=== PATIENT | female | born 1960 | race Caucasian/White ===

== ENCOUNTER 2016-09-26 09:06 | Day surgery (SDC) | payer OTHER ==
[2016-09-26] VITALS (8 sets, daily range): BP systolic 115–125; BP diastolic 70–80; PULSE 83–97; RESP 16–23; O2SAT 96–100
[~2016-09-26] VITALS: Ht 149.9 cm; Wt 48.6 kg
[~2016-09-26 09:06] MED LIST: Dexamethasone 4 mg/mL Inj IVPUSH PRN; EPHEDrine Sulfate 50 mg/mL Inj IVPUSH PRN; HYDROmorphone 1 mg/mL Inj IVPUSH PRN; Labetalol 5 mg/mL 4 mL Inj IV PRN; Lactated Ringer's 1,000 ML IV SCH; Lactated Ringer's 500 ML IV PRN; MetoCLOpramide 5 mg/mL 2 mL Inj IVPUSH PRN; Ondansetron 2 mg/mL 2 mL Inj IVPUSH PRN; Phenylephrine 10,000 mCg/mL Inj IVPUSH PRN; VENL37.587 PO; fentaNYL-PF 50 mCg/mL 2 mL Inj IVPUSH PRN; hydrALAZINE 20 mg/mL Inj IVPUSH PRN
[2016-09-26] MEDS ORDERED: fentaNYL-PF 50 mCg/mL 2 mL Inj ONE (09:07)
[2016-09-26] MEDS ORDERED: Ondansetron 2 mg/mL 2 mL Inj ONE (09:07)
[2016-09-26] MEDS ORDERED: Ketamine 10 mg/mL 20 mL Inj ONE (09:07)
[2016-09-26] MEDS ORDERED: Lidocaine PF 1% 30 mL Inj ONE (09:07)
[2016-09-26] MEDS ORDERED: Propofol 10,000 mCg/mL 20 mL Inj ONE (09:07)
[2016-09-26] MEDS ORDERED: Dexamethasone 4 mg/mL Inj ONE (09:07)
[2016-09-26] MEDS: Lactated Ringer's 1,000 ML IV SCH ×2 (09:45→12:31)
[2016-09-26] MEDS ORDERED: Bupivacaine-MPF 0.25% 30 mL Inj INFILTRATE ONE (12:31)
[2016-09-26] MEDS ORDERED: oxyCODONE-Acetamin 5-325 mg Tablet PO PRN (13:35)
--- NOTE | 2016-09-26 13:54 | PCM.HPANE ---
Patient Data Date of Service: Sep 26, 2016 Surgeon Admitting Provider: Attending Provider:Timoteo Smith MD Primary Care Physician:Liss Carballo MD Other Provider:Foster Babb Anesthesia Reason for Visit Left Breast Cancer Ht/WT & BMI Height (Feet): 4 Height (Inches): 11 Weight (Kilograms): 48.6 Body Mass Index 21.00 Allergies Uncoded Allergies: PENICILLIN (Allergy, Unknown, HIVES, 07/16/16) Past Anesthesia History Anesthesia History: Denies:: Anesthesia Reactions Diabetes History Hx Diabetes?: No Medications Home Meds Incl Beta Hetal: No Reported Medications Venlafaxine ER 37.5 Mg Tab.[id number] Mg PO BID Ref 0 09/25/16 Discontinued Reported Medications [Effexor] No Conflict Check Po Daily UNSURE OF DOSE 07/16/16 History History of ENT Problems?: No HEENT History: Denies:: Abnormal Airway Cataracts Difficult Intubation Dysphagia Glaucoma Hearing Problem Sinus Problem TMJ Denture Type: None Teeth Condition: Within Normal Limits Hx of Heart Problems?: No Cardiovascular History: Denies:: AICD Abdominal Aortic Aneurism Atrial Fibrillation Cardiac Surgery Chest Pain Congestive Heart Failure Coronary Artery Disease Edema Heart Murmur Hypertension Irregular Heartbeat Pacemaker Peripheral Vascular Rheumatic Fever Thrombophlebitis Valvular Heart Disease Hx of Respiratory Problem?: Yes Respiratory History: Positive for:: Chest Surgery (video assisted Rt Upper lobectomy in [place] 08/23/2015) Denies:: Oxygen Administration Use of C-PAP Machine Use of Inhalers / NEBS Other Resp Pertinent History: right upper lobe lung cancer Hx Neurologic Problems?: No Hx of GI Problems?: No Hx of Problems?: No Female Hx: Positive for:: Problems with Breasts? (left breast current admission problem) Hx Musculoskeletal Problems?: No Hx of Psycho/Social Problems?: Yes Psycho Social History: Positive for:: Anxiety Hx Surgeries?: Yes (breast lumpectomy, video assist Rt upper lobectomy) Hx Any Other Health Problems?: Yes Other History: Positive for:: Cancer (right upper lobe lung, left breast) Denies:: Thyroid Disease Hx Diabetes: No Have You Smoked inLast 12 mo: YesApprox How Many Cigarettes/day: 5 cig daily Stop/Bang S-Snoring: Do You Snore Loudly: No T-Tired: feel tired, fatigued: Yes O-Obsered: Observed not breath: No P-Blood Pressure: treated: No B- Body Mass Index > 35 kg/m2: No A- Age over 50: Yes N- Neck Large Circumference: No G- Gender Male: No PRAVIN Total Score: 2 PRAVIN Risk Assessment: Low Risk, <3 Yes Risk Assessment Category Category 1A: Patient has history of documented sleep apnea, and HAS NOT received any narcotic, sedative or anesthesia administration during this stay. Category 1B: Patient has history of documented sleep apnea, and HAS received any narcotic , sedative or anesthesia administration during this stay Category 2: Patient has SUSPECTED Obstructive Sleep Apnea, and HAS received any narcotic , sedative or anesthesia administration during this stay. Category 3: Patient has SUSPECTED Obstructive Sleep Apnea and HAS NOT received narcotic, sedative or anesthesia administration during this stay. Category 4: Outpatient in Procedural Areas with known sleep apnea or who screen positive for High Risk via the STOP/BANG questionnaire. Exam Exam Vital Signs Vital Signs Date Time Temp Pulse Resp B/P Pulse Ox O2 Delivery O2 Flow Rate FiO2 09/26/16 13:45 90 19 123/80 97 Room Air 09/26/16 13:40 97 18 125/80 97 Room Air 09/26/16 13:37 37.2 97 18 115/78 97 Room Air 09/26/16 09:46 36.2 88 16 120/70 100 Room Air General Appearance: Alert, Oriented X3, Cooperative, No Acute Distress HEENT/AIRWAY: MP 2 Lungs: Clear to Auscultation, Normal Air Movement Heart: Exam Unremarkable, Regular Rate/Rhythm, No Murmurs/Rubs/Gallops Meds/Labs/Diagnostics Admission Meds Current Medications Lactated Ringer's (Lr) 1,000 ml @ 120 mls/hr Q8H20M IV Last administered on 12:31; Start 09/26/16 at 05:00; Stop 09/26/16 at 13:28; Status DC Bupivacaine HCl (Sensorcaine-MPF 0.25% Inj) 30 ml STK-MED ONCE INFILTRATE Last administered on 09/26/16 12:31; Start 09/26/16 at 12:31; Stop 09/26/16 at 13:08 ; Status DC Plan Impression Patient chart reviewed, patient interviewed and anesthestic plan with risks, benefits, and alternatives discussed, and informed consent obtained. NPO per Anesth. Guidelines: Yes ASA Physical Status: ASA2 Mod Systemic Disease Anesthetic Plan: GA Bene/Risks/Altern/Consents: Yes HP Complete Prior to Induction: Yes Cuauhtemoc Ayala MD Sep 26, 2016 13:54
--- NOTE | 2016-09-26 13:54 | PCM.ANEP1 ---
Post Anesthesia PACU Phase 1 Assessment Vital Signs Vital Signs Date Time Temp Pulse Resp B/P Pulse Ox O2 Delivery O2 Flow Rate FiO2 09/26/16 13:45 90 19 123/80 97 Room Air 09/26/16 13:40 97 18 125/80 97 Room Air 09/26/16 13:37 37.2 97 18 115/78 97 Room Air 09/26/16 09:46 36.2 88 16 120/70 100 Room Air Anesthetic Administered: GA Level of Alertness: Awake, talking FIGUEROA's with Equal Strength: No Pain: No Nausea or Vomiting: No CV Function & Hydration Stable: Yes Airway Device: Lungs: Clear to Auscultation, Normal Air Movement PACU Phase 2 Assessment Complications: No Follow up Care: N/A Patient Instructions Provided: N/A Cuauhtemoc Ayala MD Sep 26, 2016 13:54
--- NOTE | 2016-09-26 14:02 | OP ---
[address] [address] OPERATIVE REPORT PATIENT: PANCHO GOMEZ : 1960 MR#: [id number] ADMIT: 09/26/2016 JOB ID: [id number] DATE OF SURGERY: 09/26/2016 ANESTHESIA: General. PREOPERATIVE DIAGNOSIS(ES): Left breast cancer. POSTOPERATIVE DIAGNOSIS(ES): Left breast cancer. OPERATION: Left partial mastectomy with sentinel lymph node biopsy. SURGEON: Dr. Timoteo Smith FISHING TOOL SUPERVISOR: Justin Pate PA-C COMPLICATIONS: None. ESTIMATED BLOOD LOSS: Less 5 mL. CONDITION: Satisfactory. SPECIMEN: 1. Left sentinel lymph node. 2. Left breast partial mastectomy. Suture wood medial. FINDINGS: There was a weak signal in the axilla. Isolated node that had slight signal and removed it. It actually turned out to be more likely a conglomeration of nodes. There was no remaining signal in the axilla and no other palpable nodes. A left partial mastectomy was completed with an ellipse of skin. The cancer palpated quite superficial. Clips were left to ely the surgical bed. Specimen radiograph confirms removal of this specimen with sonographically placed clips. INDICATION/SIGNIFICANT HISTORY: The patient is a 55-year-old woman who was recently diagnosed with a right upper lobe cancer as well as a left breast cancer. She recently underwent VATS resection of her lung cancer and was then having her breast cancer surgery today. Preoperatively she had undergone both a mammogram for left breast nodule noted on physical examination, followed by ultrasound with biopsy confirming intermediate to high-grade ductal carcinoma. A clip was placed at that time and the specimen radiograph obtained. Prior to the biopsy, she had an MRI which demonstrated a 1.3 x 0.9 x 1.6 cm mass with a subcentimeter satellite lesion medial to the mass. She also underwent FNA of a left axillary lymph node with findings benign. PET scan showed no evidence of cassia disease. OPERATIVE TECHNIQUE: The patient received a nuclear medicine injection in the preoperative holding area. She was then brought back into the operating room and placed in the supine position. General anesthesia was administered. The left axilla and breast were prepped and draped in a standard surgical fashion. A procedural pause performed. I then used a gamma probe to determine if there is any signal in the axilla. There is very low signal. A transverse incision was made at the hairline and dissection carried down through skin and subcutaneous tissue. The fascia was opened to enter the deep axillary space. Using a gamma probe, I identified area of signal. There was a palpable node that corresponded with this. Therefore, dissect this out. It actually looks more like a conglomeration of a couple nodes. There was no remained signal in the axilla and no more palpable nodes. Attention was then turned to the left breast. There was an easily palpable lesion in the area of the breast cancer. Because it seemed quite superficial, I made an elliptical incision encompassing the skin over this. I then performed a generous lumpectomy being sure to take a lot of tissue medially to try and encompass this satellite lesion. The excision went down to the pectoralis fascia. After completely removing the specimen, it was oriented and stitched. A specimen radiograph confirmed that the sonographically placed clip was present. I then placed clips in surgical bed for postoperative radiation therapy localization. The breast tissue was then reapproximated using 3-0 Vicryl followed by running 4-0 Monocryl for the skin. 3-0 Vicryl was used to reapproximate the fascia and the axilla again followed by a running 4-0 Monocryl. Dermabond was applied to both incisions. Local anesthetic was injected. The entire procedure was well tolerated without complication.
--- NOTE | 2016-09-27 11:44 | DRSVH ---
PROCEDURE: NM SENTINEL NODE INJECTION ONLY, LEFT BREAST RADIOPHARMACEUTICAL: 0.598 mCi Millipore filtered Tc-99m sulfur colloid. INDICATIONS: pre-op in DS PROCEDURE: The indications, alternatives, benefits, risks, and complications of the procedure were explained to the patient. Written informed consent was obtained and placed in the chart. The area around the nip ple was prepped and draped in a sterile fashion. Tc-99m sulfur colloid was injected in the outer edg e of the areola in the left breast. No image was obtained. IMPRESSION: Administration of radiotracer into the left breast periareolar region for intra-operativ e sentinel lymph node localization. Dictated by: Harpreet Souza M.D. on 09/27/2016 at 11:41 Approved by: Harpreet Souza M.D. on 09/27/2016 at 11:43
--- NOTE | 2016-09-30 08:33 | DRSVH ---
SPECIMEN: 09/26/2016 CLINICAL: Breast specimen. Correlation is made to exams dated: 09/27/2015 mammogram, 06/15/2013 mammogram, and 07/16/2010 mammogram - Breast [facility]. Left breast specimen radiograph containing a ribbon shaped clip. IMPRESSION: SPECIMEN Left breast specimen radiograph containing a ribbon shaped clip. Prasad Evans M.D. cj/:09/27/2016 17:27:02 Additional referring physicians: MARICARMEN JOAQUIN LUCIA C. MULLU
--- NOTE | 2016-10-01 13:23 | PATH ---
SURGICAL PATHOLOGY Attending Physician:Timoteo Smith MD CASE STATUS: Signed Out PATIENT NAME: BERNICE GOMEZ PID: [id number] : 1960 DATE COLLECTED:09/26/2016 00:00 SPECIMEN: 1: [place] Lymph Node 2: Breast, Simple Mastectomy (lymph nodes submitted separately) CLINICAL HISTORY: LEFT BREAST CANCER 1). SENTINEL LYMPH NODE LEFT AXILLA OUT 13:06 FORMALIN 13:18 2). LEFT BREAST PARTIAL MASTECTOMY OUT 13:14 FORMALIN 13:24, SUTURE FERRARA MEDIAL FINAL DIAGNOSIS: 1.LEFT AXILLARY SENTINEL LYMPH NODE BIOPSY: SINGLE LYMPH NODE NEGATIVE FOR MALIGNANCY (SEE CAP CANCER SUMMARY BELOW). 2.LEFT BREAST EXCISIONAL SPECIMEN: INVASIVE BREAST CARCINOMA (SEE CAP CANCER SUMMARY BELOW). CAP CANCER CASE SUMMARY INVASIVE CARCINOMA OF THE BREAST: PROCEDURE: EXCISIONAL SPECIMEN WITHOUT WIRE LOCALIZATION LYMPH NODE SAMPLING: SINGLE SENTINEL LYMPH NODE (PART 1) NEGATIVE FOR MALIGNANCY TUMOR SIZE: 2.2 X 1.6 X 1.3 CM HISTOLOGIC TYPE: INFILTRATING DUCTAL CARCINOMA HISTOLOGIC GRADE: SADIQ HISTOLOGIC SCORE 9 OF 9 Glandular/Tubular differentiation: Score 3 of 3 Nuclear Pleomorphism: Score 3 of 3 Mitotic Rate: Score 3 of 3 Overall Grade: Grade High Grade (Grade 3 of 3) TUMOR FOCALITY: SINGLE FOCUS OF INVASIVE CARCINOMA DUCTAL CARCINOMA IN SITU: PRESENT Size (Extent) of DCIS: MULTIPLE AREAS THROUGHOUT THE INVASIVE TUMOR AND IMMEDIATELY ADJACENT TO THE TUMOR WITH A SINGLE 1.0 MM FOCUS JUST MEDIAL TO THE INVASIVE CARCINOMA Architectural patterns: SOLID Nuclear grade: Grade HIGH Necrosis: ABSENT MACROSCOPIC AND MICROSCOPIC EXTENT OF TUMOR SKIN: NEGATIVE FOR TUMOR MARGINS INVASIVE CARCINOMA: Anterior: 0.4 CM Posterior: LESS THAN 0.1 CM Superior: 1.2 CM Inferior: 1.5 CM Medial: 1.1 CM Lateral: 1.4 CM DUCTAL CARCINOMA IN SITU: Posterior: LESS THAN 0.1 CM ALL OTHER MARGINS GREATER THAN 1.0 CM LYMPH NODES Total number of lymph nodes examined: 1 Number of sentinel lymph nodes examined: 1 Lymph Node Involvement: NEGATIVE FOR TUMOR Method of Evaluation of [place] Lymph Nodes: H&E SECTIONS LYMPH-VASCULAR INVASION: NEGATIVE FOR VASCULAR AND LYMPHATIC CHANNEL INVASION BY IMMUNOHISTOCHEMISTRY (SEE MICROSCOPIC DESCRIPTION) DERMAL LYMPH-VASCULAR INVASION: NEGATIVE PATHOLOGIC STAGING: AJCC, 7th ed., 2010 PRIMARY TUMOR: pT2 REGIONAL LYMPH NODES: pN0 (sn) ANCILLARY STUDIES: Biomarkers Performed Previously on Case: BIOMARKERS PERFORMED PREVIOUSLY ON BIOPSY (INFORMATION GLEANED FROM THE ONCOLOGY CLINICAL NOTE OF 08/15/16) Estrogen Receptor (ER) Status: POSITIVE Progesterone Receptor (PgR) Status: POSITIVE HER2 (by immunohistochemistry): NEGATIVE ICD10 C50.912 GROSS DESCRIPTION: The specimens are received in formalin, labeled with the patient's name, and sublabeled as the following: (1) sentinel lymph node left axilla; (2) left partial mastectomy. (1) The specimen consists of a lymph node (2.5 x 2.2 x 0.8 cm). Section code: (1A-1C) one lymph node, serially sectioned. Specimen entirely submitted. (2) The specimen consists of a piece of breast tissue (1.9 cm AP, 4.0 cm SI, 4.7 cm ML) partially covered by an ellipse of skin (1.1 cm SI, 3.9 cm ML). The specimen is oriented with a black suture indicating the l medial margin. No localization wire is present. The specimen is serially sectioned ML into 13 slices with the medial and lateral resection margins slices #1 and #13 respectively. The breast tissue is fatty and contains a acuña-white solid firm well-circumscribed mass (2.2 x 1.6 x 1.3 cm) within slices #4-#9. The mass is 0.8 cm from the skin surface, 0.4 cm from the anterior, 0.2 cm from the posterior, 1.2 cm from the superior, 1.5 cm from the inferior, 1.1 cm from the medial, and 1.4 cm from the lateral resection margins. No other nodules, masses or lesions are identified. The skin is valle-white and unremarkable. Ink code: purple-anterior; yellow-posterior; black-superior; orange-inferior; green-medial; blue-lateral. Section code: (2A) he margin, perpendicular; (2B) slice #2; (2C) slice #3, tissue adjacent to mass; (2D) slice #4; (2E-2F) slice #5, bisected and submitted SI; (2G-2H) slice #6, bisected and submitted SI; (2I-2J) slice #7, bisected and submitted SI; (2K-2L) slice #8, bisected and submitted SI; (2M-2N) slice #9, bisected and submitted SI; (2O-2P) slice #10, bisected and submitted AP; (2Q) slice #11; (2R) slice #12; (2S) slice #13. Specimen entirely submitted. Note: Approximate total fixation time in formalin for all specimens-shaped 70 hours using a collection date of September 26, 2016 with times in formalin in 1318 and 1324 respectively. 09/28/16 JM MICRO DESCRIPTION: Sections from part 1 are of a sentinel lymph node. Multiple sections have been prepared and they are negative for evidence of malignancy. Sections from part 2 are from a left breast excisional specimen. The grossly-described mass is an infiltrating ductal carcinoma that appears to be high grade. The tumor consists of large malignant cells with irregular hyperchromatic nuclei, coarse chromatin, and occasional nucleoli. Mitotic figures are frequent. There is little or no tubular differentiation. In some areas, shrinkage artifact is prominent, and for this reason immunohistochemistry is performed in an attempt to rule out the possibility of blood vessel or lymphatic invasion. The antibodies utilized are directed against CD31 for endothelial cells and D2-40 for lymphatic channels. The stains nicely outline these structures, and none of them contain evidence of tumor. Therefore the tumor is considered negative for both vascular channel and lymphatic channel invasion. There are, however, multiple areas of perineural space invasion by malignant cells. Duct carcinoma in situ is present in multiple areas. The DCIS is of high nuclear grade, solid growth pattern without evidence of necrosis. In the sections just medial to the invasive tumor there is a focus of DCIS that measures 1 mm in maximum dimension. This focus is present less than 0.1 cm from the posterior margin. Invasive tumor is likewise focally present less than 0.1 cm from the posterior margin. The invasive tumor is present 0.4 cm from the anterior margin. All other margins are widely free of both invasive tumor and DCIS. This test was developed and its performance characteristics determined by [employer]. It has not been cleared or approved by the U. [place]. Food and Drug Administration. The FDA has determined that such clearance or approval is not necessary. This test is used for clinical purposes. It should not be regarded as investigational or for research. ICD-9 CODES: CPT CODES: 1: 97312 2: 90942, 32237, 51277 Electronically Signed Out Manuel Jewell MD [facility] [address], [place] [address] Technical component performed at [facility], [facility] [address], [place], [address]
== END 2016-09-26 23:59 | disposition home or self-care (01) ==
LOC: SAS 09:06
PROVIDERS: ATTEND General Practice
DX: C50.512 Malignant neoplasm of lower-outer quadrant of left female breast (principal); F41.9 Anxiety disorder, unspecified; F17.210 Nicotine dependence, cigarettes, uncomplicated; Z17.0 Estrogen receptor positive status [ER+]; Z85.118 Personal history of other malignant neoplasm of bronchus and lung
CPT/HCPCS: 19301; 38525; 38792; 76098; A9541; J1100; J1885; J2250; J2405; J3010; J7120